=== PATIENT | female | born 1945 | race Caucasian/White ===

== ENCOUNTER 2016-12-25 12:46 | Day surgery (SDC) | payer MEDICARE ==
[~2016-12-25] VITALS: Ht 162.6 cm; Wt 54.5 kg
[2016-12-25] VITALS (8 sets, daily range): BP systolic 116–128; BP diastolic 59–85; PULSE 76–83; RESP 10–21; O2SAT 96–100
[~2016-12-25 12:46] MED LIST: CHOL5000 PO; ESTRIOL VAGINAL; MELA1TAB11 PO; METO25TA6 PO; ROSU5TAB PO; [UNRECOGNIZED DRUG - OTHER]; [UNRECOGNIZED DRUG - OTHER]; cortisol manager; supplements
[2016-12-25] MEDS ORDERED: MetoCLOpramide 5 mg/mL 2 mL Inj ONE (12:47)
[2016-12-25] MEDS ORDERED: Dexamethasone 4 mg/mL Inj ONE (12:47)
[2016-12-25] MEDS ORDERED: Propofol 10,000 mCg/mL 20 mL Inj ONE (12:47)
[2016-12-25] MEDS ORDERED: Ondansetron 2 mg/mL 2 mL Inj ONE (12:47)
[2016-12-25] MEDS: Lactated Ringer's 1,000 ML IV SCH ×2 (13:01→16:16)
[2016-12-25] MEDS ORDERED: CeFAZolin Inj 2 gm / 50mL D5W IV ONE (13:14)
--- NOTE | 2016-12-25 15:39 | PCM.HPANE ---
Patient Data Surgeon Admitting Provider: Attending Provider:Shad Monroe MD Primary Care Physician:Caro Olivas MD Other Provider:Abdulaziz Alford Anesthesia Reason for Visit Right Patella Fracture Ht/WT & BMI Height (Feet): 5 Height (Inches): 4 Weight (Kilograms): 54.5 Body Mass Index 20.00 Allergies Coded Allergies: No Known Allergies (Unverified , 12/25/16) Past Anesthesia History Anesthesia History: Denies:: Abnormal Airway, Anesthesia Reactions, Difficult Intubation, Fam Anesthesia Reaction Diabetes History Hx Diabetes?: No MRSA MRSA: No Medications Hypertension Medication: Yes Home Meds Incl Beta Immanuel: No Reported Medications [supplements] No Conflict Check Daily mushrooms, "liver"chaga,messima,turkey tail, tumeric, milk thistle,black pepper, lions jazmin, beta carotene, tocomin, suprabio tocotrienols 12/24/16 [osteoprime ultra] No Conflict Check2 Tab DAILY 12/24/16 Cholecalciferol (Vitamin D3) (Vitamin D3)5,000 Unit Capsule5,000 Unit PO DAILY 12/24/16 [vitamin k-d3] No Conflict [id number],000 Units DAILY 12/24/16 [cortisol supply chain program manager] No Conflict Check1 Tab DAILY 12/24/16 Melatonin/Pyridoxine (Melatonin 3 mg Tablet)1 Each Tablet1 Each PO DAILY 12/24/16 [estriol] No Conflict Check1 Mg VAGINAL 2xweekly 12/24/16 Metoprolol Tartrate 25 Mg [id number] Mg PO DAILY 30 Days Ref 0 12/24/16 Rosuvastatin Calcium (Crestor)5 Mg Tablet5 Mg PO 3xweekly 30 Days Ref 0 12/24/16 History History of ENT Problems?: No HEENT History: Positive for:: Glaucoma (being monitored for - no gtts) Denies:: Abnormal Airway Cataracts Difficult Intubation Dysphagia Hearing Problem Sinus Problem TMJ Denture Type: None Teeth Condition: Within Normal Limits Hx of Heart Problems?: Yes Cardiovascular History: Positive for:: Hypertension Denies:: AICD Abdominal Aortic Aneurism Atrial Fibrillation Cardiac Surgery Chest Pain Congestive Heart Failure Coronary Artery Disease Edema Heart Murmur Irregular Heartbeat Pacemaker Peripheral Vascular Rheumatic Fever Thrombophlebitis Valvular Heart Disease Hx of Respiratory Problem?: No Respiratory History: Denies:: Asthma COPD Emphysema Oxygen Administration Pneumonia Tuberculosis Use of C-PAP Machine Use of Inhalers / NEBS Hx Neurologic Problems?: No Neurological History: Denies:: CVA Dementia Dizziness Headaches Multiple Sclerosis Parkinson's Disease Seizures TIA Hx of GI Problems?: Yes Hx of Problems?: No Genitourinary History: Denies:: Kidney Stones Urinary Tract Infection Female Hx: Denies:: Currently Problems with Breasts? Skin History: Denies:: History Skin Disorders? Pressure Ulcers Hx Musculoskeletal Problems?: Yes Musculoskeletal History: Positive for:: Musculoskeletal Trauma (right patella fx current admission problem/ wearing leg brace) Osteoarthritis (osteoporosis) Denies:: Back Injury Degenerative Joint Fibromyalgia Joint Replacement Systemic Lupus Hx of Psycho/Social Problems?: Yes Psycho Social History: Positive for:: Anxiety (situational regarding surgery) Hx Surgeries?: Yes (closed redux left wrist-2006) Hx Any Other Health Problems?: Yes Other History: Positive for:: Hospitalization (right wrist laceration-injury) Denies:: Cancer Thyroid Disease History Blood Transfusions: Positive for:: Accept Blood Products? Denies:: Blood Transfuse Reaction Blood Transfusions Hx Diabetes: No Hx Alcohol Use: NoHx Substance Use: NoHave You Smoked inLast 12 mo: No Stop/Bang Treated for Sleep Apnea?: No Do You Have a CPAP Machine?: No P-Blood Pressure: treated: Yes B- Body Mass Index > 35 kg/m2: No A- Age over 50: Yes N- Neck Large Circumference: No G- Gender Male: No Risk Assessment Category Category 1A: Patient has history of documented sleep apnea, and HAS NOT received any narcotic, sedative or anesthesia administration during this stay. Category 1B: Patient has history of documented sleep apnea, and HAS received any narcotic , sedative or anesthesia administration during this stay Category 2: Patient has SUSPECTED Obstructive Sleep Apnea, and HAS received any narcotic , sedative or anesthesia administration during this stay. Category 3: Patient has SUSPECTED Obstructive Sleep Apnea and HAS NOT received narcotic, sedative or anesthesia administration during this stay. Category 4: Outpatient in Procedural Areas with known sleep apnea or who screen positive for High Risk via the STOP/BANG questionnaire. Exam Exam Vital Signs Vital Signs Date Time Temp Pulse Resp B/P Pulse Ox O2 Delivery O2 Flow Rate FiO2 12/25/16 13:11 36.2 76 16 116/73 100 Room Air General Appearance: Oriented X3 HEENT/AIRWAY: MP 2 Lungs: Normal Air Movement Heart: Regular Rate/Rhythm Meds/Labs/Diagnostics Admission Meds Current Medications Lactated Ringer's (Lr) 1,000 ml @ 120 mls/hr [id number] IV Last administered on t 13:01; Start 12/25/16 at 05:00; Stop 12/25/16 at 13:38; Status DC Plan Impression Patient chart reviewed, patient interviewed and anesthestic plan with risks, benefits, and alternatives discussed, and informed consent obtained. ASA Physical Status: ASA2 Mod Systemic Disease Anesthetic Plan: GA, Regional Block Bene/Risks/Altern/Consents: Yes HP Complete Prior to Induction: Yes Sergey Moncada MD December 25, 2016 15:39
[2016-12-25] MEDS ORDERED: EPHEDrine Sulfate 50 mg/mL Inj IVPUSH PRN (16:15)
[2016-12-25] MEDS ORDERED: Lactated Ringer's 500 ML IV PRN (16:15)
[2016-12-25] MEDS ORDERED: Ondansetron 2 mg/mL 2 mL Inj IVPUSH PRN (16:15)
[2016-12-25] MEDS ORDERED: Phenylephrine 10,000 mCg/mL Inj IVPUSH PRN (16:15)
[2016-12-25] MEDS ORDERED: MetoCLOpramide 5 mg/mL 2 mL Inj IVPUSH PRN (16:15)
[2016-12-25] MEDS ORDERED: fentaNYL-PF 50 mCg/mL 2 mL Inj IVPUSH PRN (16:15)
[2016-12-25] MEDS ORDERED: HYDROmorphone 1 mg/mL Inj IVPUSH PRN (16:15)
[2016-12-25] MEDS ORDERED: Lactated Ringer's 1,000 ML IV SCH (16:15)
[2016-12-25] MEDS ORDERED: Dexamethasone 4 mg/mL Inj IVPUSH PRN (16:15)
[2016-12-25] MEDS ORDERED: Ropivacaine-PF 0.5% 30 mL Inj INFILTRATE ONE (16:47)
[2016-12-25] MEDS ORDERED: Ketorolac 15 mg/mL Inj IVPUSH ONE (18:15)
[2016-12-25] MEDS ORDERED: HYDROcodone-APAP 5-325 mg Tablet PO PRN (18:15)
--- NOTE | 2016-12-25 18:19 | PCM.ORTHOP ---
Orthopedic Operative Report Date of Service: December 25, 2016 Pre Operative Diagnosis right patella fracture Post Operative Diagnosis Same Procedure Right patella ORIF Surgeon Surgeon: Shad Monroe MD Assistants: Murali Zamarripa Indication for Procedure Right patella fracture Findings Comminuted right patellar fracture Details of Procedure Narrative: Indication: Emanuel Dobbs is a 71-year-old female who presents with a right comminuted displaced patella fracture. A clear explanation was given to the patient regarding the condition present, and the available conservative and surgical options. It was emphasized that the risks and benefits of surgery include but are not limited to infection, wound healing problems, damage to adjacent structures such as nerves, blood vessels and tendons, senior care disability and pain, arthritis, hypersensitivity, deep vein thrombosis, pulmonary embolism, broken hardware, failure of surgery, need for further procedures at time of surgery or later, cast related problems, loss of limb or life. The patient was given an explanation and the patient voiced understanding of what to expect after the procedure or surgery, the limitations in activities of daily living, the likely duration for post operative recovery and the instructions that are to be followed. At the end the patient was invited to seek clarification or ask further questions but there were none. The patient voiced understanding of the entire consultation. Description of Procedure: Patient was marked and taken to OR. The patient was positioned supine and proper time out was performed with nursing, anesthesia, and faculty. Patient then underwent general endotracheal intubation and was prepped and draped in the normal sterile fashion. A 7 cm longitudinal incision was made over the patella. The comminuted patella fracture was exposed and debrided with curettes and a rongeur and then irrigated. Once the fracture ends were completely visible. The fracture was then reduced with multiple Swann clamp. 3 parallel K-wires were placed across the fracture equidistant from each other and the medial and lateral edges of the patella and close to the articular surface of the patella. . The anatomic reduction was confirmed with AP and lateral views. An 18 gauge wire was then used as a cerclage wire and another one was used for tension band technique and passed posterior to the extensor mechanism just superior and inferior to the patella with a 16 gauge angiocatheter. This was placed in a [id number] configuration and tightened with a heavy needle funeral limousine driver. Wire cutters were used to transect the excess wire and bury the tip with a bone tamp and mallet. Final AP and lateral fluoroscopy radiographs confirmed the reduction and accurate placement of hardware. The wound was again irrigated. The retinaculum was closed with 2-0 vicryl and 2-0 Proline for the skin. Xeroform, 4 x 4 gauze, and soft roll were applied followed by a knee immobilizer. I was present and scrubbed in for the entire procedure. There were no complications. The patient was extubated and patient taken to recovery in stable condition. Please keep dressing clean dry and intact. Do not remove dressing until follow- up in clinic. If the dressing become soaked, you may remove the outer gauze and placed Band-Aids on the wounds. You may weight-bear as tolerated with the brace on at all times. Do Not Bend Your Knee. You may place a pillow under your heel and NOT your knee. You will follow up in clinic in 10-14 days for suture removal, and placement of new Steri-Strips. Please keep the affected extremity elevated when possible. You may use ice and/or heat as needed for comfort. (preferably ice during the first 48-72 hours)Please feel free to call with any further questions, comments, and/or concerns. Grafts, Implants: Implants-See Implant Record Complications There were no periprocedural complications identified. Condition Stable Anesthetic Administered: GA Catheters: None Output, Estimated Blood Loss: 15 Blood Admin during surgery: No Surgical Cast or Splint: Knee Immobilizer Surgical Specimen Removed: No Specimen sent to Pathology: No copies to: Shad Monroe MD, Christopher L MD December 25, 2016 18:19
--- NOTE | 2016-12-25 18:39 | PCM.ANEP1 ---
Post Anesthesia PACU Phase 1 Assessment Vital Signs Vital Signs Date Time Temp Pulse Resp B/P Pulse Ox O2 Delivery O2 Flow Rate FiO2 12/25/16 13:11 36.2 76 16 116/73 100 Room Air Anesthetic Administered: GA Level of Alertness: Sleepy, easy to arouse Pain: No Nausea or Vomiting: No CV Function and Hydration: Yes Airway Device: Oralpharangeal Airway Lungs: Normal Air Movement PACU Phase 2 Assessment Patient Instructions Provided: N/A Sergey Moncada MD December 25, 2016 18:39
== END 2016-12-25 23:59 | disposition home or self-care (01) ==
LOC: SAS 12:46
PROVIDERS: ATTEND Orthopaedic Surgery
PROC: 0QSD04Z Reposition Right Patella with Internal Fixation Device, Open Approach (ICD-10-PCS; principal; 2016-12-25 15:15)
DX: S82.041A Displaced comminuted fracture of right patella, initial encounter for closed fracture (principal); W18.09XA Striking against other object with subsequent fall, initial encounter; Z87.891 Personal history of nicotine dependence; M81.0 Age-related osteoporosis without current pathological fracture
CPT/HCPCS: 27524; 76001; J0690; J1100; J1885; J2405; J2765; J2795; J7120